=== PATIENT | female | born 1970 | race Hispanic/Latino ===

== ENCOUNTER 2021-06-29 08:54 | Emergency (ER) | payer SELFPAY ==
[2021-06-29] MEDS ORDERED: ONDANSETRON 4 MG/2 ML VIAL ONE (09:35)
[2021-06-29] MEDS ORDERED: MORPHINE 4 MG/ML SYR ONE ×2 (09:35→11:20)
[2021-06-29] MEDS ORDERED: NA CHLORIDE 0.9% 500 ML ONE ×2 (09:35→11:21)
--- NOTE | 2021-06-29 11:17 | RAD REPORT ---
EXAM DESCRIPTION: RAD - Pelvis - 06/29/2021 10:27 am CLINICAL HISTORY: fall COMPARISON: No comparisons FINDINGS: No acute fracture. No malalignment. No significant focal degenerative changes. IMPRESSION: No acute osseous abnormality involving the bony pelvis.
--- NOTE | 2021-06-29 11:17 | RAD REPORT ---
EXAM DESCRIPTION: RAD - Femur Right - 06/29/2021 10:27 am CLINICAL HISTORY: fall;Pain COMPARISON: No comparisons FINDINGS: No acute fracture. No malalignment. No significant focal degenerative changes. IMPRESSION: No acute osseous abnormality involving the right femur.
[2021-06-29] MEDS ORDERED: DIAZEPAM 10 MG/2 ML INJ SYRINGE ONE (11:21)
--- NOTE | 2021-06-29 11:22 | RAD REPORT ---
EXAM DESCRIPTION: CTAbdomen Pelvis Wo Contrast - 06/29/2021 10:59 am CLINICAL HISTORY: . right hip pain from fall COMPARISON: No comparisons TECHNIQUE: Biphasic CT imaging of the abdomen and pelvis was performed with 100 ml non-ionic IV cont rast. All CT scans are performed using dose optimization technique as appropriate and may include automated exposure control or mA/KV adjustment according to patient size. FINDINGS: Lower chest: Hepatic steatosis. Liver: No acute abnormality or suspicious lesions. Hepatomegaly with steatosis . Biliary: No biliary ductal dilatation. Cholecystectomy. Stomach: No significant focal abnormality. Duodenum: No significant focal abnormality. Pancreas: No significant abnormality. Spleen: No significant abnormality. Adrenal: No suspicious lesions. Kidney/ureter: No hydronephrosis. No renal calculi. Retroperitoneum: No retroperitoneal adenopathy. Vascular: No aneurysm. Bowel: No significant focal abnormality. Normal appendix. Peritoneum: No ascites or free air. Small fat containing umbilical hernia. Bladder: Grossly unremarkable. Reproductive: No adnexal masses. Bones: No acute fracture. Disc height loss at L5-S1. Trace anterolisthesis of L4 on L5. Other: n/a IMPRESSION: No acute intra-abdominal or pelvic finding. No evidence of significant trauma.
--- NOTE | 2021-06-29 11:45 | RAD REPORT ---
EXAM DESCRIPTION: RAD - Knee Left 3 View - 06/29/2021 11:36 am CLINICAL HISTORY: PAIN COMPARISON: No comparisons FINDINGS: No acute fracture. No malalignment. No significant focal degenerative changes. IMPRESSION: No acute osseous abnormality involving the left knee.
--- NOTE | 2021-06-29 12:18 | ER ---
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 Did the ll1 "splits". Reported R thigh pain and R hip pain. No LOC or head injury. Coronavirus screen: Client denies travel out of the [place] in the last 14 days. At this time, the client does not indicate any symptoms associated with coronavirus-19. Ebola Screen: Patient denies travel to an Ebola-affected area in the 21 days before illness onset. 08:59 Method Of Arrival: EMS ll1 09:00 Initial Sepsis Screen: Does the patient meet any 2 criteria? No. Patient's initial ll1 sepsis screen is negative. Does the patient have a suspected source of infection? No. Patient's initial sepsis screen is negative. Risk Assessment: Do you want to hurt yourself or someone else? Patient reports no desire to harm self or others. Onset of symptoms was June 29, 2021. 09:00 Acuity: SNEHA 4 ll1 09:24 Care prior to arrival: None. Mechanism of Injury: Fall. Trauma event details: Injury ll1 occurred in the [facility]. Triage Assessment: 09:22 General: Appears uncomfortable, Behavior is calm, cooperative, appropriate for age. ll1 Pain: Complains of pain in R hip/leg Quality of pain is described as aching, Aggravated by increased activity. Neuro: No deficits noted. Cardiovascular: No deficits noted. Respiratory: No deficits noted. Musculoskeletal: Circulation, motion, and sensation intact. Capillary refill < 3 seconds, Tenderness present in R hip Reports pain in R hip and R leg. Injury Description: Bruise. 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 Flu vaccine status is unknown. - Social history:: Smoking status: Patient reports the use of cigarette tobacco products, smokes one-half pack cigarettes per day. - Immunization history: Last tetanus immunization: - up to date. Screenin:19 Abuse screen: Denies threats or abuse. Nutritional screening: No deficits noted. ll1 Tuberculosis screening: No symptoms or risk factors identified. Fall Risk Fall in past 12 months (25 points). Ambulatory Aid- Crutches/Cane/Walker (15 pts). Gait- Impaired (20 pts.). Total [place] Fall Scale indicates High Risk Score (45 or more points). Fall prevention measures have been instituted. Side Rails Up X 2 Placed Close to Nursing Station Frequent Obs/Assessments Occuring Family Present and informed to notify staff if the need to leave the bedside As available patient and family educated on Fall Prevention Program and Strategies. Primary Survey: 09:23 NO uncontrolled hemorrhage observed. A: The patient is alert. Airway: patent. ll1 Breathing/Chest: Respiratory effort: spontaneous, unlabored. Circulation: Pulses: palpable right radial artery, right dorsalis pedis artery, left radial artery and left dorsalis pedis artery. Skin color: pink. Disability Alert. Exposure/Environment: There is no evidence of uncontrolled external bleeding. 12:48 Reassessment Breathing/Chest Respiratory effort Spontaneous Unlabored. ll1 Assessment: 10:20 Reassessment: No changes from previously documented assessment. Patient and/or family ll1 updated on plan of care and expected duration. Pain level reassessed. Patient is alert, oriented x 3, equal unlabored respirations, skin warm/dry/pink. 11:20 Reassessment: No changes from previously documented assessment. Patient and/or family ll1 updated on plan of care and expected duration. Pain level reassessed. Patient is alert, oriented x 3, equal unlabored respirations, skin warm/dry/pink. Patient states symptoms have not improved. 12:20 Reassessment: No changes from previously documented assessment. Patient and/or family ll1 updated on plan of care and expected duration. Pain level reassessed. Patient is alert, oriented x 3, equal unlabored respirations, skin warm/dry/pink. Patient states feeling better. Patient states symptoms have improved. Vital Signs: 08:59 BP 138 / 84; Pulse 77; Resp 17; Pulse Ox 98% ; ll1 09:18 Temp 97.4; Pain 10/10; ll1 12:45 BP 109 / 73; Pulse 72; Resp 18; Pulse Ox 98% ; Pain 4/10; ll1 [place] Coma Score: 09:23 Eye Response: spontaneous(4). Verbal Response: oriented(5). Motor Response: obeys ll1 commands(6). Total: 15. Trauma Score (Adult): 09:23 Eye Response: spontaneous(1); Verbal Response: oriented(1); Motor Response: obeys ll1 commands(2); Systolic BP: > 89 mm Hg(4); Respiratory Rate: 10 to 29 per min(4); [place] Score: 15; Trauma Score: 12 ED Course: 08:58 Patient arrived in ED. ll1 08:59 Jason Chavez PA is PHCP. cp 08:59 Arik Wilburn MD is Attending Physician. cp 09:00 Triage completed. ll1 09:00 Arm band placed on Patient placed in an exam room, on a stretcher. ll1 09:05 Jag Franz, JOS is Primary Nurse. ll1 09:12 Inserted saline lock: 20 gauge in right antecubital area, using aseptic technique. mt Blood collected. 09:24 Patient has correct armband on for positive identification. Bed in low position. Call ll1 light in reach. Side rails up X 1. Pulse ox on. NIBP on. 09:24 Patient maintains SpO2 saturation greater than 95% on room air. ll1 09:24 Thermoregulation: warm blanket given to patient. ll1 10:26 XRAY Pelvis In Process Unspecified. EDMS 10:26 XRAY Femur RIGHT In Process Unspecified. EDMS 10:58 CT Abd/Pelvis - Without Contrast In Process Unspecified. EDMS 11:36 XRAY Knee LEFT 3 view In Process Unspecified. EDMS 12:47 No provider procedures requiring assistance completed. IV discontinued, intact, ll1 bleeding controlled, No redness/swelling at site. Pressure dressing applied. Administered Medications: 09:18 Drug: morphine 4 mg {Note: rass 0.} Route: IVP; Site: right antecubital; ll1 12:46 Follow up: Response: No adverse reaction; Pain is unchanged, physician notified ll1 09:18 Drug: NS 0.9% 500 ml Route: IV; Rate: bolus; Site: right antecubital; ll1 10:00 Follow up: Response: No adverse reaction; RASS: Alert and Calm (0); IV Status: ll1 Completed infusion; IV Intake: 500ml 09:18 Drug: Zofran (Ondansetron) 2 mg Route: IVP; Site: right antecubital; ll1 12:47 Follow up: Response: No adverse reaction ll1 11:28 Drug: morphine 4 mg {Note: rass 0.} Route: IVP; Site: right antecubital; ll1 12:47 Follow up: Response: No adverse reaction; Pain is decreased; RASS: Alert and Calm (0) ll1 11:28 Drug: Diazepam 5 mg Route: IVP; Site: right antecubital; ll1 12:47 Follow up: Response: No adverse reaction; Pain is decreased; RASS: Alert and Calm (0) ll1 11:28 Drug: NS 0.9% 500 ml Route: IV; Rate: bolus; Site: right antecubital; ll1 12:47 Follow up: Response: No adverse reaction; IV Status: Completed infusion; IV Intake: ll1 5000ml Intake: 10:00 IV: 500ml; Total: 500ml. ll1 12:47 IV: 5000ml; Total: 5500ml. ll1 12:48 PO: 0ml; Total: 5500ml. ll1 Output: 12:48 Urine: 0ml; Total: 0ml. ll1 Outcome: 12:18 Discharge ordered by MD. cp 12:48 Discharged to home ambulatory. ll1 12:48 Condition: stable 12:48 Discharge instructions given to patient, family, Instructed on discharge instructions, follow up and referral plans. no drinking with medication, no driving heavy equipment, medication usage, crutch walking, Demonstrated understanding of instructions, follow-up care, medications, crutch walking, Prescriptions given X 3. 12:48 Patient's length of stay was not longer than 2 hours. ll1 12:49 Patient left the ED. ll1 Signatures: Dispatcher [employer] EDMS Jason Chavez PA PA cp Thompson, Moriah mt Lewis, Lynsay, RN RN 1
--- NOTE | 2021-06-29 12:19 | EDPHYS ---
Physician Documentation [facility] Name: Ciara Rodas Age: 51 yrs Sex: Female : 1970 Arrival Date: 06/29/2021 Time: 08:58 Bed 19 Private MD: ED Physician Arik Wilburn HPI: 06/29 09:03 This 51 yrs old Female presents to ER via EMS with complaints of Fall Injury, cp Hip Pain. 09:03 Details of fall: The patient fell from an upright position, while walking, and struck a cp tile surface. Onset: The symptoms/episode began/occurred just prior to arrival. Associated injuries: The patient sustained right upper leg. 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 Patient c/o pain cp to right upper leg. 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 Flu vaccine status is unknown. - Social history:: Smoking status: Patient reports the use of cigarette tobacco products, smokes one-half pack cigarettes per day. - Immunization history: Last tetanus immunization: - up to date. ROS: 09:05 MS/extremity: Positive for pain, of the right hip and right upper leg, Negative for cp deformity. 09:05 Neck: Negative for pain with movement, pain at rest. cp 09:05 Cardiovascular: Negative for chest pain. 09:05 Respiratory: Negative for cough, shortness of breath, wheezing. 09:05 Neuro: Negative for altered mental status, headache, loss of consciousness, syncope. 09:05 Constitutional: Negative for body aches, chills, fever. cp 09:05 Abdomen/GI: Negative for abdominal pain, nausea, vomiting, and diarrhea. 09:05 All other systems are negative. Exam: 09:10 Constitutional: The patient appears in no acute distress, alert, awake, non-toxic, well cp developed, well nourished, obese, uncomfortable. 09:10 Head/Face: Normocephalic, atraumatic. cp 09:10 Eyes: Periorbital structures: appear normal, Conjunctiva: normal, no exudate, no injection, Lids and lashes: appear normal, bilaterally. 09:10 Neck: C-spine: vertebral tenderness, is not appreciated, crepitus, is not appreciated, ROM/movement: is normal, is supple, without pain, no range of motions limitations. 09:10 Chest/axilla: Inspection: normal, Palpation: is normal, no crepitus, no tenderness. 09:10 Cardiovascular: Rate: normal. 09:10 Respiratory: the patient does not display signs of respiratory distress, Respirations: normal, no use of accessory muscles, no retractions, labored breathing, is not present, Breath sounds: are clear throughout, no decreased breath sounds. 09:10 Abdomen/GI: Inspection: abdomen appears normal, Palpation: abdomen is soft and non-tender, in all quadrants. 09:10 Back: vertebral tenderness, is not appreciated. 09:10 Musculoskeletal/extremity: Extremities: grossly normal except: noted in the right upper leg: pain, noted in the left knee: abrasion, tenderness, ROM: limited passive range of motion due to pain, in the right hip and right knee, Pulses: noted to be 2+ in the right dorsalis pedis artery and left dorsalis pedis artery. 09:10 Neuro: Orientation: to person, place \T\ time. Mentation: is normal, Sensation: no obvious gross deficits. Vital Signs: 08:59 BP 138 / 84; Pulse 77; Resp 17; Pulse Ox 98% ; ll1 09:18 Temp 97.4; Pain 10/10; ll1 12:45 BP 109 / 73; Pulse 72; Resp 18; Pulse Ox 98% ; Pain 4/10; ll1 [place] Coma Score: 09:23 Eye Response: spontaneous(4). Verbal Response: oriented(5). Motor Response: obeys ll1 commands(6). Total: 15. Trauma Score (Adult): 09:23 Eye Response: spontaneous(1); Verbal Response: oriented(1); Motor Response: obeys ll1 commands(2); Systolic BP: > 89 mm Hg(4); Respiratory Rate: 10 to 29 per min(4); Lefty Score: 15; Trauma Score: 12 MDM: 09:02 Patient medically screened. cp 10:00 Differential diagnosis: closed head injury, contusion, fracture, multiple trauma. cp 12:16 Data reviewed: vital signs, nurses notes, radiologic studies, CT scan, plain films. cp Counseling: I had a detailed discussion with the patient and/or guardian regarding: the historical points, exam findings, and any diagnostic results supporting the discharge/admit diagnosis, radiology results, to return to the emergency department if symptoms worsen or persist or if there are any questions or concerns that arise at home. ED course: VSS. Pain improved with meds. Radiology results negative for acute trauma. Will discharge to home for continued monitoring. 12:17 Response to treatment: the patient's symptoms have markedly improved after treatment, cp and as a result, I will discharge patient. 06/29 09:03 Order name: XRAY Pelvis; Complete Time: 11:48 06/29 11:48 Interpretation: Report reviewed. 06/29 09:03 Order name: XRAY Femur RIGHT; Complete Time: 11:48 06/29 11:49 Interpretation: Report reviewed. 06/29 10:48 Order name: XRAY Knee LEFT 3 view; Complete Time: 11:48 06/29 11:49 Interpretation: Report reviewed. 06/29 10:48 Order name: CT Abd/Pelvis - Without Contrast; Complete Time: 11:48 06/29 11:50 Interpretation: Report reviewed. 06/29 09:03 Order name: IV; Complete Time: 09:06 06/29 09:03 Order name: Urine Dipstick-Ancillary (obtain specimen); Complete Time: 09: 06/29 09:03 Order name: Urine Test (obtain specimen); Complete Time: 09: 06/29 12:41 Order name: Crutches; Complete Time: 12:47 cp Administered Medications: :18 Drug: morphine 4 mg {Note: rass 0.} Route: IVP; Site: right antecubital; ll1 12:46 Follow up: Response: No adverse reaction; Pain is unchanged, physician notified ll1 09:18 Drug: NS 0.9% 500 ml Route: IV; Rate: bolus; Site: right antecubital; ll1 10:00 Follow up: Response: No adverse reaction; RASS: Alert and Calm (0); IV Status: ll1 Completed infusion; IV Intake: 500ml :18 Drug: Zofran (Ondansetron) 2 mg Route: IVP; Site: right antecubital; ll1 12:47 Follow up: Response: No adverse reaction ll1 11:28 Drug: morphine 4 mg {Note: rass 0.} Route: IVP; Site: right antecubital; ll1 12:47 Follow up: Response: No adverse reaction; Pain is decreased; RASS: Alert and Calm (0) ll1 11:28 Drug: Diazepam 5 mg Route: IVP; Site: right antecubital; ll1 12:47 Follow up: Response: No adverse reaction; Pain is decreased; RASS: Alert and Calm (0) ll1 11:28 Drug: NS 0.9% 500 ml Route: IV; Rate: bolus; Site: right antecubital; ll1 12:47 Follow up: Response: No adverse reaction; IV Status: Completed infusion; IV Intake: ll1 5000ml Disposition: 12:30 Chart complete. cp 13:03 Co-signature as Attending Physician, Arik Wilburn MD I agree with the assessment and kdr plan of care. Disposition Summary: 06/29/21 12:18 Discharge Ordered Location: Home cp Problem: new cp Symptoms: have improved cp Condition: Stable cp Diagnosis - Pain in right hip - from fall cp - Pain in knee - bilateral from fall cp Followup: cp - With: Private Physician - When: 2 - 3 days - Reason: Recheck today's complaints Discharge Instructions: - Discharge Summary Sheet cp - Acute Knee Pain, Adult cp - Hip Pain cp Forms: - Medication Reconciliation Form cp - Thank You Letter cp - Antibiotic Education cp - Prescription Opioid Use cp Prescriptions: - Naprosyn 500 mg Oral Tablet - take 1 tablet by ORAL route 2 times per day take with food; 20 tablet; Refills: cp 0, Product Selection Permitted - Cyclobenzaprine 10 mg Oral Tablet - take 1 tablet by ORAL route every 8 hours As needed; 20 tablet; Refills: 0, cp Product Selection Permitted - Tramadol 50 mg Oral Tablet - take 1 tablet by ORAL route every 8 hours as needed; 12 tablet; Refills: 0, cp Product Selection Permitted Signatures: Dispatcher [employer] EDArik Leblanc MD MD kdr Page, Corey, PA PA cp Lewis, Lynsay, RN RN ll1 Corrections: (The following items were deleted from the chart) 06/30 00:46 09/10 09:05 All other systems are negative, cp cp
== END 2021-06-29 12:49 | disposition home or self-care (01) ==
LOC: ER 08:54
DX: M25.562 Pain in left knee (principal); M25.561 Pain in right knee; W01.0XXA Fall on same level from slipping, tripping and stumbling without subsequent striking against object, initial encounter; Y92.512 Supermarket, store or market as the place of occurrence of the external cause; F17.210 Nicotine dependence, cigarettes, uncomplicated
CPT/HCPCS: 72170; 74176; 96361; 96374; 96375; 99285; J2405; J3360; J7040